=== PATIENT | female | born 1995 | race Caucasian/White ===

== ENCOUNTER 2018-07-31 06:17 | Inpatient (IN) ==
[2018-07-31] MEDS ORDERED: CeFAZolin Premix DUPLEX 2,000 MG/50 ML BAG IVPB ONE (06:26)
[2018-07-31] MEDS ORDERED: Famotidine 20 MG/2 ML VIAL IVP ONE (06:26)
[2018-07-31] MEDS ORDERED: Metoclopramide 10 MG/2 ML VIAL IVP ONE (06:26)
[2018-07-31] MEDS ORDERED: Ringers Solution, Lactated 1,000 ML IVC SCH ×2 (06:30→17:03)
[2018-07-31 07:19] LABS: Basophils % 0.2 %; Eosinophils # 0.1 K/mcL (0.0-0.6); Eosinophils % 1.5 %; Hemoglobin 13.4 g/dL (11.5-15.4); Immature Granulocytes % 0.7 % (0-4); Lymphocytes # 1.7 K/mcL (0.6-4.6); Lymphocytes % 19.1 %; Mean Corpuscular HGB Conc 32.7 g/dL (31.6-35.5); Mean Corpuscular Hemoglobin 27.2 pg (28.0-33.3); Mean Corpuscular Volume 83.2 fL (83.0-100.0); Mean Platelet Volume 12.4 fL (9.4-12.4); Monocytes # 0.6 K/mcL (0.0-1.3); Monocytes % 6.8 %; Neutrophils # 6.5 K/mcL (1.6-8.9); Platelet Count 162 K/mcL (140-400); Red Blood Count 4.93 M/mcL (3.82-4.97); Red Cell Distribution Width 17.7 % (11.5-14.5); Segmented Neutrophils % 71.7 %
[2018-07-31] MEDS ORDERED: Methylergonovine 0.2 MG/ML AMPUL IM ONE ×2 (08:04→16:00)
[2018-07-31 08:07] LABS: Amphetamine Screen,Urine Negative ng/mL (Cutoff=1000); Barbiturate Screen,Urine Negative ng/mL (Cutoff=200); Benzodiazepines Screen,Urine Negative ng/mL (Cutoff=200); Cannabinoid Screen,Urine Negative ng/mL (Cutoff = 50); Cocaine Screen,Urine Negative ng/mL (Cutoff= 300); Opiate Screen,Urine Negative ng/mL (Cutoff=300); Phencyclidine Screen,Urine Negative ng/mL (Cutoff=25)
--- NOTE | 2018-07-31 08:13 | OB/GYN History & Physical ---
Date of Encounter: 07/31/18 Time of Encounter: 08:10 Assessment and Plan (1) 39 weeks gestation of Current visit: Yes Status: Acute 22 y/o @ 39+2 weeks, h/o prior x 1, GBS neg/A+ Plan: consents verified, will proceed to History of Present Illness HPI: Ms. Nath is a 22 year old female @ 39+2 weeks who presents to the office for her scheduled RC/S. No LOF, VB or ctxs, feels good FM. She has a h/o panic attacks and has had work up to rule out an arrhythmia during the including an ECHO and EKG. Otherwise, her history has been uncomplicated. Past Med Surg Social Fam HX - Past Medical History Medical history: no medical history Psychiatric history: anxiety - Past Surgical History Surgical History: - Social History Smoking Status: Never smoker Smokeless Tobacco Status: No Alcohol use: none Drug use: none - Family History Maternal Grandmother Family Member Ethnicity: Non- Living Status: Still Living Hx Family Cardiac Disorders: Yes (clotting disorder) Hx Family Respiratory Disorders: No Hx Family Cancer: No Hx Family GI Disorders: No Hx Family Genitourinary Disorders: No Hx Family Endocrine Disorder: No Hx Family Musculoskeletal Disorders: No Hx Family Neuromuscular Disorders: No Hx Family Neurologic Disorders: No Hx Family HEENT Disorders: No Hx Family Autoimmune Disorders: No Hx Family Reproductive Disorders: No Hx Family Psychosocial Disorders: No Hx Family Medical Disorders: No Obstetrical History - Pregnancies : 2 Para: 1 Medications and Allergies [id number]/Iron Fumarate/FA/Dss [ 19 Tablet] 07/31/18 [History] Allergy/AdvReac Type Severity Reaction Status Date / Time No Known Allergies Allergy Verified 07/31/18 06:25 Review of System OB All systems PM: reviewed and no additional remarkable complaints except as stated Exam - Constitutional Constitutional: well developed - HEENT HEENT: PERRL - Neck Neck exam: full ROM - Lungs Respiratory exam: CTAB - Cardiovascular Cardiovascular exam: RRR - Abdomen Abdomen: Present: gravid Results Result Diagrams: 07/31/18 06:30 Abnormal lab results MCH 27.2 pg (28.0-33.3) L 07/31/18 06:30 RDW 17.7 % (11.5-14.5) H 07/31/18 06:30 All other labs normal. - VTE Reasons for not Prescribing Prophylaxis: Treatment not Indicated - Low risk for VTE
--- NOTE | 2018-07-31 09:43 | Anesthesia Evaluation PreOp ---
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 Never had imaging or followup with her primary care provider. Denies numbness, tingling or motor weakness.) : Yes (, first section d/t CPD after long labor) Alcohol Use: none Drug use: none Medications and Allergies [id number]/Iron Fumarate/FA/Dss [ 19 Tablet] 07/31/18 [History] Allergy/AdvReac Type Severity Reaction Status Date / Time No Known Allergies Allergy Verified 07/31/18 06:25 - Meds/Allergy Pre-op Review Medications Reviewed: Yes Allergies Reviewed: Yes Beta Blockers on Current Med List: No Anesthesia Results - Labs 07/31/18 06:30 Anesthesia Exam O2 Sat Height 1.63 m Weight 100.1 kg Height: 64 Weight: 220 NPO (# of Hours): greater than 8 hours - HEENT Pupil (Motor): Pupils equal Mallampati: II Teeth: Normal Oral Opening: Greater than 3 - [employer] PLANNING ENGINEER LOC: Oriented [employer]ING [employer]ER Motor: Normal RUE, Normal LUE, Normal RLE, Normal LLE, Normal Face [employer] Sensory: Normal: RUE, LUE, RLE, LLE, Face - Cardiac Rhythm: Regular Murmur: None JVD: No Carotid Bruit: No - Pulmonary Breath Sounds: bilateral Clear Respiratory Effort: Symmetrical Anesthesia Assess/Plan ASA Score: 2 Level of consciousness: Cooperative Anesthetic Plan: Spinal Monitoring Plan: Standard Monitors Recovery Plan: PACU
--- NOTE | 2018-07-31 11:14 | Anesthesia Evaluation Post Op ---
Date of Encounter: 07/31/18 Time of Encounter: 11:13 - Lungs Lungs: Clear Ascult./Percussion - Airway Airway: Non-obstructed - Cardiovascular Regular Rate - Mental Status Mental Status: Alert & Oriented, Answers Appropriately - Pain Pain Scale: 3 - Nausea Vomiting Nausea Vomiting: Not Present - Hydration Hydration: Ice chips, Young catheter - Discharge PostOp Status: Transfer Patient to floor
[2018-07-31] MEDS ORDERED: *HR* FentaNYL (PF) 100 MCG/2 ML VIAL ONE (11:45)
[2018-07-31] MEDS ORDERED: *HR* Morphine Sulfate/PF 10 MG/10 ML AMPUL ONE (11:45)
[2018-07-31] MEDS ORDERED: *HR* Oxytocin 10 UNIT/ML VIAL IM ONE ×2 (11:45→14:10)
[2018-07-31] MEDS ORDERED: Ondansetron 4 MG/2 ML VIAL ONE (13:53)
[2018-07-31] MEDS ORDERED: Ringers Solution, Lactated 1,000 ML ONE (14:10)
--- NOTE | 2018-07-31 14:11 | OB/GYN Procedure Note ---
Section - Date of procedure: 07/31/18 Preop diagnosis: desires repeat Post-op diagnosis: same Procedure: repeat low transverse Surgeon: Emily Saenz Blood Loss: 400 Was there an expanded function dental assistant present: Yes Breast Splitter: Kaleb Willis Anesthesia Type: Epidural section complications: none Disposition: L&D Recovery Room Specimens: Placenta - Narrative Narrative: The patient was taken to the operating room where spinal anesthesia was given and found to be adequate. The patient was prepped and draped in the usual sterile fashion in the dorsal supine position with a left-pathak tilt. A Pfannenstiel skin incision was made with the scalpel and carried through to the underlying layer of fascia. The fascia was incised in the midline and extended laterally and bluntly. The underlying rectus muscles were dissected off bluntly and we got access easily into the abdomen The peritoneum was bluntly dissected, entered, and extended superiorly and inferiorly with good visualization of the bladder. The bladder blade was inserted. The lower uterine segment was incised in a transverse fashion using the scalpel and extended using the bandage scissors. Clear fluid was noted. The infant was subsequently delivered atraumatically. The nose and mouth were bulb suctioned. The cord was clamped and cut. The infant was subsequently handed to the awaiting nursery nurse. The uterus was exteriorized and cleared of all clots and debris. The uterine incision was repaired in 2 layers using 0 vicryl suture. Hemostasis was visualized but the uterus was noted to be atonic. I gave her methergine 0.2mg x 1 and injected Hemabate 0.25mg x 1 into the uterus. The uterus became firm. The uterus was then returned to the abdomen. The uterine incision was reexamined and was noted to be hemostatic. I applied Dannie to the incision. The fascia was closed with 0 Vicryl, the subcutaneous layer was closed with 3-0 vicryl after irrigation, and the skin was closed with 4-0 vicryl. Sponge, lap, and instrument counts were correct x2. The patient was stable at the completion of the procedure and was subsequently transferred to the recovery room in stable condition. weight 3975g, APGARs 9/9.
[2018-07-31] MEDS ORDERED: Oxytocin 20 units/ LR 1000 mL 20 UNIT/1,000 ML BAG IVC ONE (15:03)
[2018-07-31] MEDS ORDERED: Metoclopramide 10 MG/2 ML VIAL IVP PRN (17:03)
[2018-07-31] MEDS ORDERED: Ondansetron 4 MG/2 ML VIAL IVP PRN (17:03)
[2018-07-31] MEDS ORDERED: Oxytocin 20 units/ LR 1000 mL 20 UNIT/1,000 ML BAG IVC SCH (17:03)
[2018-07-31] MEDS ORDERED: Rho Immune Globulin 1,500 UNIT SYRINGE IM ONE (17:03)
[2018-07-31] MEDS ORDERED: Sennosides 8.6 MG TABLET PO PRN (17:03)
[2018-07-31] MEDS: *HR* OxyCODONE/APAP 5/325 TABLET PO PRN ×2 (17:43→22:45)
[2018-07-31] MEDS: Simethicone 80 MG TAB.CHEW PO PRN (20:19)
[2018-07-31] MEDS: Ibuprofen 600 MG TABLET PO PRN (20:19)
[2018-08-01] MEDS: Ibuprofen 600 MG TABLET PO PRN ×3 (02:51→19:35)
[2018-08-01 03:29] LABS: Basophils % 0.2 %; Eosinophils % 0.1 %; Hematocrit 31.7 % (35.3-44.9); Immature Granulocytes % 0.6 % (0-4); Lymphocytes # 0.7 K/mcL (0.6-4.6); Lymphocytes % 6.5 %; Mean Corpuscular HGB Conc 32.2 g/dL (31.6-35.5); Mean Corpuscular Hemoglobin 26.7 pg (28.0-33.3); Mean Platelet Volume 12.5 fL (9.4-12.4); Monocytes # 0.7 K/mcL (0.0-1.3); Neutrophils # 9.1 K/mcL (1.6-8.9); Platelet Count 140 K/mcL (140-400); Red Blood Count 3.82 M/mcL (3.82-4.97); Red Cell Distribution Width 17.7 % (11.5-14.5); Segmented Neutrophils % 85.6 %
[2018-08-01 03:30] LABS: Hemoglobin 10.2 g/dL (11.5-15.4)
[2018-08-01] MEDS: *HR* OxyCODONE/APAP 5/325 TABLET PO PRN ×2 (08:20→19:35)
[2018-08-01] MEDS: Prenatal Vit/FA 1 EACH TABLET PO SCH (08:20)
--- NOTE | 2018-08-01 08:23 | OB/GYN Progress Note ---
Date of Encounter: 08/01/18 Time of Encounter: 08:21 - Assessment and Plan (1) S/P repeat low transverse Current Visit: Yes Status: Acute POD #1 Meeting day 1 milestones Pain well controlled on prescribed medications Bleeding normal, no large clots noted Tolerating diet. Urinary catheter removed this AM. Passing gas, no BM yet. Plan to ambulate today. (2) anemia Current Visit: Yes Status: Acute Hgb 13.4 on adm, 10.2 today No active signs of increased blood loss aside from normal vaginal bleeding Admits to lightheadedness when going from sitting to standing, but otherwise denies SOB or CP Continue daily iron supplementation Will recheck CBC in the AM Subjective - Subjective Principal diagnosis: s/p Patient reports: appetite normal, voiding normally, pain well controlled : doing well Objective - Vital Signs Latest vital signs: Vital Signs Temp Pulse Resp BP Pulse Ox 08/01/18 02:50 98.0 F 92 16 101/61 95 08/01/18 00:00 98.2 F 92 16 113/76 96 07/31/18 19:45 97.8 F 96 16 113/75 98 07/31/18 19:03 98.3 F 95 12 104/68 95 07/31/18 18:15 98.6 F 90 16 115/76 95 07/31/18 17:45 98.3 F 88 14 105/72 95 07/31/18 17:32 98.5 F 88 12 106/58 96 07/31/18 17:28 90/61 07/31/18 16:45 97.6 F 85 12 108/72 95 Intake and Output 07/31/18 08/01/18 08/01/18 23:59 07:59 15:59 Intake Total 120 / 240 120 / 120 Output Total 450 / 800 550 / 550 Balance -330 / -560 -430 / -430 Intake: Oral 120 / 240 120 / 120 Output: Catheter 450 / 800 550 / 550 Other: Stool Characteristics Normal for Patient Weight 95.9 kg 95.209 kg Patient Weight 08/01/18 23:59 Weight 95.209 kg - Exam Lungs: bilateral: normal Chest: Normal S1, Normal S2 Extremities: Present: normal, edema (non-pitting pedal edema) Abdomen: Present: normal appearance, soft, tenderness (tenderness noted surrounding incision and with palpation of the uterus) Incision: Present: dry, intact Uterus: Present: firm Fundal Height: 1 (1 below umbilicus) Comments: I examined this patient and my medical decision-making was reviewed with the Resident Physician. I agree with the documented findings, disposition and treatment plan as described except to the extent set forth below. MAYO Saldivar - Labs Labs: Laboratory Results - last 24 hr 08/01/18 03:08 WBC 10.6 RBC 3.82 Hgb 10.2 L D Hct 31.7 L MCV 83.0 MCH 26.7 L MCHC 32.2 RDW 17.7 H Plt Count 140 MPV 12.5 H Immature Gran % 0.6 Seg Neutrophils % 85.6 Lymphocytes % 6.5 Monocytes % 7.0 Eosinophils % 0.1 Basophils % 0.2 Neutrophils # 9.1 H Lymphocytes # 0.7 Monocytes # 0.7 Eosinophils # 0.0 Basophils # 0.0
[2018-08-01] MEDS: Simethicone 80 MG TAB.CHEW PO PRN ×2 (13:56→23:42)
[2018-08-02] MEDS: *HR* OxyCODONE/APAP 5/325 TABLET PO PRN ×5 (01:41→23:18)
[2018-08-02] MEDS: Ibuprofen 600 MG TABLET PO PRN ×3 (01:41→21:16)
[2018-08-02 05:08] LABS: Hematocrit 29.9 % (35.3-44.9); Hemoglobin 9.4 g/dL (11.5-15.4); Mean Corpuscular HGB Conc 31.4 g/dL (31.6-35.5); Mean Corpuscular Volume 85.9 fL (83.0-100.0); Platelet Count 142 K/mcL (140-400); Red Blood Count 3.48 M/mcL (3.82-4.97); Red Cell Distribution Width 18.4 % (11.5-14.5)
[2018-08-02] MEDS: Prenatal Vit/FA 1 EACH TABLET PO SCH (09:05)
--- NOTE | 2018-08-02 12:25 | OB/GYN Progress Note ---
Date of Encounter: 08/02/18 Time of Encounter: 12:22 - Assessment and Plan (1) Acute blood loss as cause of postoperative anemia Current Visit: Yes Status: Acute Continue iron supplementation daily (2) Breast feeding status of mother Current Visit: Yes Status: Acute support when needed (3) S/P repeat low transverse Current Visit: Yes Status: Acute Meeting day 2 milestones with the exception of pain control Continue routine care Give pain medications on schedule Anticipate discharge home tomorrow Subjective - Subjective Principal diagnosis: s/p RLTCS Interval history: Feeling well. Out of bed without dizziness. Some abdominal discomfort-using binder. Cramping minimal, using ibuprofen and Percocet. every 2- 3 hours. Some nipple soreness. Voiding without difficulty. Passing flatus, no BM yet. Tolerating regular diet. Patient reports: appetite normal, voiding normally, ambulating normally, no pain well controlled : doing well, nursing well Objective - Vital Signs Latest vital signs: Vital Signs Temp Pulse Resp BP Pulse Ox 08/02/18 08:15 97.8 F 92 16 120/72 08/01/18 20:00 97.7 F 99 16 107/67 98 Intake and Output 08/01/18 08/02/18 08/02/18 23:59 07:59 15:59 Intake Total 900 / 1020 1020 / 1020 Output Total 1800 / 3750 500 / 500 Balance -900 / -2730 520 / 520 Intake: Oral 900 / 1020 1020 / 1020 Output: Urine 1800 / 3200 500 / 500 Other: Meal Breakfast Percent of Meal Consumed 25% Weight 96.797 kg Patient Weight 08/02/18 23:59 Weight 96.797 kg - Exam Lungs: bilateral: normal Chest: Normal S1, Normal S2 Extremities: Present: normal Abdomen: Present: normal appearance, soft Incision: Present: normal, dry, dressed Uterus: Present: normal, firm Fundal Height: 0 (midline) - Labs Labs: Laboratory Results - last 24 hr 08/02/18 04:29 WBC 9.4 RBC 3.48 L Hgb 9.4 L Hct 29.9 L MCV 85.9 MCH 27.0 L MCHC 31.4 L RDW 18.4 H Plt Count 142 MPV 12.0
[2018-08-03] MEDS: Ibuprofen 600 MG TABLET PO PRN ×2 (04:10→14:10)
[2018-08-03] MEDS: *HR* OxyCODONE/APAP 5/325 TABLET PO PRN ×3 (06:51→17:03)
[2018-08-03] MEDS: Prenatal Vit/FA 1 EACH TABLET PO SCH (08:19)
[2018-08-03 08:22] VITALS: BP 111/73
--- NOTE | 2018-08-03 11:46 | Discharge Summary ---
Date of Encounter: 08/03/18 Time of Encounter: 11:43 - Discharge Diagnosis (1) Acute blood loss as cause of postoperative anemia Priority: Secondary Status: Acute (2) Breast feeding status of mother Priority: Secondary Status: Acute (3) S/P repeat low transverse Priority: Primary Status: Acute Comments: Pt meeting all post-op milestones. Pain well controlled with PO medications. Tolerating regular diet, voiding, passing flatus. Reports good mood. - Discharge Medications Prescriptions: New Ferrous Sulfate 325 mg PO DAILY #30 tablet Ibuprofen [Motrin] 600 mg PO Q6HR PRN #30 tablet PRN Reason: Cramping OxyCODONE/APAP 5/325 [Percocet 5/325 MG] 1 each PO Q6HR PRN 7 Days #28 tablet PRN Reason: Moderate pain 4-6 Docusate [Colace] 100 mg PO BID #60 capsule Simethicone [Gas-X] 80 mg PO TID PRN tab.chew PRN Reason: Dyspepsia Continued [id number]/Iron Fumarate/FA/Dss [ 19 Tablet] Home Medications: [id number]/Iron Fumarate/FA/Dss [ 19 Tablet] 07/31/18 [History] Docusate [Colace] 100 mg PO BID #60 capsule 08/03/18 [Rx] Ferrous Sulfate 325 mg PO DAILY #30 tablet 08/03/18 [Rx] Ibuprofen [Motrin] 600 mg PO Q6HR PRN #30 tablet 08/03/18 [Rx] OxyCODONE/APAP 5/325 [Percocet 5/325 MG] 1 each PO Q6HR PRN 7 Days #28 tablet 08/03/18 [Rx] Simethicone [Gas-X] 80 mg PO TID PRN tab.chew 08/03/18 [Rx] Allergies/Adverse Reactions: Allergy/AdvReac Type Severity Reaction Status Date / Time tramadol Allergy Nausea Verified 07/31/18 11:42 Data Procedures and tests throughout hospitalization: Laboratory Tests 07/31/18 07/31/18 08/01/18 06:30 06:30 03:08 WBC 9.1 10.6 RBC 4.93 3.82 Hgb 13.4 10.2 L D Hct 41.0 31.7 L MCV 83.2 83.0 MCH 27.2 L 26.7 L MCHC 32.7 32.2 RDW 17.7 H 17.7 H Plt Count 162 140 MPV 12.4 12.5 H Immature Gran % 0.7 0.6 Seg Neutrophils % 71.7 85.6 Lymphocytes % 19.1 6.5 Monocytes % 6.8 7.0 Eosinophils % 1.5 0.1 Basophils % 0.2 0.2 Neutrophils # 6.5 9.1 H Lymphocytes # 1.7 0.7 Monocytes # 0.6 0.7 Eosinophils # 0.1 0.0 Basophils # 0.0 0.0 Urine Opiates Screen Negative Ur Barbiturates Screen Negative Ur Phencyclidine Scrn Negative Ur Amphetamines Screen Negative U Benzodiazepines Scrn Negative Urine Cocaine Screen Negative U Marijuana (THC) Screen Negative Ur Drug Screen Interp See Below 08/02/18 04:29 WBC 9.4 RBC 3.48 L Hgb 9.4 L Hct 29.9 L MCV 85.9 MCH 27.0 L MCHC 31.4 L RDW 18.4 H Plt Count 142 MPV 12.0 Immature Gran % Seg Neutrophils % Lymphocytes % Monocytes % Eosinophils % Basophils % Neutrophils # Lymphocytes # Monocytes # Eosinophils # Basophils # Urine Opiates Screen Ur Barbiturates Screen Ur Phencyclidine Scrn Ur Amphetamines Screen U Benzodiazepines Scrn Urine Cocaine Screen U Marijuana (THC) Screen Ur Drug Screen Interp Date of admission: 07/31/18 06:17 Primary care physician: PCP SHOAIB Discharging clinician: Maddy Saeed Anticipated date of discharge: 08/03/18 - Patient Status Disposition: Home, Self-Care Condition: Good Functional capacity at discharge: independent ambulation Overall status at discharge: patient is progressing back to baseline - Discharge Instructions Follow Up With: NONE,PCP [Primary Care Provider] - Emily Cedeno MD [Partnered Physician] - - Diet and Activity Activity: increase activity as tolerated Diet: regular diet Hospital Course Reason for admission: section Delivery: section Episiotomy: none Laceration: none Other procedures: none complications: none Discharge diagnosis: IUP at term delivered baby: female Hospital course: - Date of procedure: 07/31/18 Preop diagnosis: desires repeat Post-op diagnosis: same Procedure: repeat low transverse Surgeon: Emily Cedeno Quantitated Blood Loss: 400 Was there an orthotic assistant present: Yes Curriculum Writer: Kaleb Willis Anesthesia Type: Epidural section complications: none Disposition: L&D Recovery Room Specimens: Placenta Time Attestation: Total time spent providing and/or coordinating discharge services: Time Spent: Less than 30 minutes - VTE Reasons for not Prescribing Prophylaxis: Treatment not Indicated - Low risk for VTE Documentation of Mechanical Device: Intermittent pneumatic compression device Exam - Constitutional Vitals: Temp Pulse Resp BP Pulse Ox 97.7 F 87 16 111/73 97 08/03/18 08:21 08/03/18 08:21 08/03/18 08:21 08/03/18 08:21 08/02/18 20:15 General appearance IM: A&O X 3 - Respiratory Respiratory exam: Present: CTAB - Cardiovascular Cardiovascular exam IM: Present: RRR, +S1, +S2 - GI/Abdominal GI/Abdominal exam IM: soft, no peritoneal signs Incision: intact (no s/sx infection) - Uterine Tone: Firm Uterus Position: 1 Finger Below Umbilicus - Extremities Exam Extremities exam IM: Present: pedal edema (1+ bilaterally) - Neurological Exam Neurological exam: normal gait, oriented X3
== END 2018-08-03 18:33 | disposition home or self-care (01) | DRG 540 ==
LOC: 1NENULAB 06:17 → EDSTATUS 07:45 → 1NENUOBS 16:55
PROVIDERS: ADMIT Student in an Organized Health Care Education/Training Program; ATTEND Student in an Organized Health Care Education/Training Program